=== PATIENT | male | born 1980 | race Caucasian/White ===

== ENCOUNTER 2020-07-02 18:12 | Emergency (ER) | payer OTHER, SELFPAY ==
[2020-07-02 18:15] VITALS: BP 133/81; PULSE 99; RESP 18; TEMP 35.8; O2SAT 98; BMI 20.9
--- NOTE | 2020-07-02 18:28 | ED.DCSUM_ITS ---
- ER Visit Summary Date of Service: 07/02/20 Chief Complaint: Cough History of Present Illness: The patient is a 39 M presenting with cough. Patient states this started today. He has had a nonproductive cough. He denies fever. He states he had 2 episodes of vomiting earlier this morning. He denies abdominal pain. Denies diarrhea. He has a mild headache. Family states he has been exposed to Covid at work and needs a Covid test. Physical Examination: Vitals are stable. Patient is afebrile. Alert no acute distress. Pulse ox 98% on room air HEENT exam is unremarkable. Pharynx is normal Neck is supple. No meningismus Lungs are clear and equal bilaterally. Heart is regular rate and rhythm. Abdomen is soft nontender nondistended. No guarding or rebound Extremities are unremarkable. Skin is warm and dry. Remainder of exam is unremarkable. Emergency Department Course and Treatment: Patient was given Zofran, Tylenol. Chest x-ray read by myself and radiology shows no acute process. Covid test is negative. On reevaluation, patient is feeling improved. He is able to tolerate p.o. in the ED. Advised to follow-up with primary care physician. Advised return to ED for worsening complaints. Disposition: Discharge home Impression: Viral syndrome This note was generated with [employer] dictation software. It may contain incorrect words, spelling, and punctuation that were not noted in review of the chart prior to signing ED Disposition - Plan for ED Patient: Instructions: ED Viral Syndrome (Adult) Prescriptions: Ondansetron [Zofran Odt] 4 mg PO Q8H PRN PRN #10 tab PRN Reason: Nausea Prescription Printed Referrals: Shailesh Mueller MD [Primary Care Provider] -
[2020-07-02 18:41] VITALS: BP 133/81; PULSE 99; RESP 18; TEMP 35.8; O2SAT 98
--- NOTE | 2020-07-02 18:45 | RAD_ITS ---
STUDY: X-RAY CHEST REASON FOR EXAM: Male, 39 years old. PT BROUGHT IN BY FAMILY FOR COUGH, HEADACHE, DIFFICULTY CLEARING THROAT. PT''S AUNT REPORTS PT HAS HISTORY MYOTONIC DYSTROPHY. TECHNIQUE: Single frontal view of the chest. COMPARISON: None. FINDINGS: The lungs are clear and expanded. There is no demonstrated pleural abnormality. Normal size heart. Normal mediastinum and eladio. Normal visualized pulmonary arteries. Normal visualized aortic arch and descending thoracic aorta. Normal visualized thoracic spine. Normal visualized ribs, clavicles, and shoulders. There is no demonstrated abnormality of the visualized soft tissue structures of the upper abdomen. RAD/Chest 1 View (Portable) IMPRESSION: Normal x-ray examination of the chest. Electronically Signed: Edson Cramer MD at 19:29 EST , Service support ,
[2020-07-02] MEDS: Acetaminophen 650 MG/20 ML UDC PO (19:09)
[2020-07-02] MEDS: Ondansetron ODT 4 MG Tablet PO (19:09)
--- NOTE | 2020-07-02 19:46 | ED.DEP ---
ED Disposition - Plan for ED Patient: Instructions: ED Viral Syndrome (Adult) Prescriptions: Ondansetron [Zofran Odt] 4 mg PO Q8H PRN PRN #10 tab PRN Reason: Nausea Prescription Printed Referrals: Shailesh Mueller MD [Primary Care Provider] -
== END 2020-07-02 20:06 | disposition home or self-care (01) ==
LOC: ED 19:26
PROVIDERS: Emergency Provider Emergency Medicine; PCP Family Medicine
DX: B34.9 Viral infection, unspecified (principal)
CPT/HCPCS: 71045; 87426; 99283